=== PATIENT | female | born 1990 | race Caucasian/White ===

== ENCOUNTER 2021-02-25 08:42 | Emergency (ER) | payer MEDICAID ==
[~2021-02-25] VITALS: Ht 160 cm; Wt 65.0 kg
[2021-02-25 08:50] VITALS: BP 99/53
[2021-02-25 09:16] LABS: CLARITY,URINE SLIGHTLY CLOUDY (Clear); COLOR,URINE STRAW (Yellow); GLUCOSE, URINE NEGATIVE (Neg); KETONES,URINE NEGATIVE (Neg); LEUKOCYTE ESTERASE ,URINE NEGATIVE (Neg); NITRITES, URINE NEGATIVE (Neg); OCCULT BLOOD,URINE SMALL (Neg); PROTEIN,URINE NEGATIVE (Neg); UROBILINOGEN,URINE 0.2 E.U/dL (0.2-1.0)
[2021-02-25 09:17] LABS: URINE HCG NEGATIVE (NEG)
[2021-02-25 09:29] LABS: EOSINOPHILS # (AUTO) 0.1 X10'3 (0-0.9); LYMPHOCYTES # (AUTO) 1.8 X10'3 (1.1-4.8); MEAN CORPUSCULAR HEMOGLOBIN 32.8 PG (27.0-31.0)
[2021-02-25 09:30] LABS: UA COLLECTION TYPE CLN CATCH MIDSTREAM
[2021-02-25 09:31] LABS: SQUAMOUS EPITHELIAL CELL,UR MODERATE /LPF (FEW)
[2021-02-25 09:31] LABS: BASOPHILS % (AUTO) 0.3 % (0-1); EOSINOPHILS % (AUTO) 1.2 % (0-6); HEMATOCRIT 42.4 % (35.0-45.0); HEMOGLOBIN 14.4 g/dl (12.0-16.0); LYMPHOCYTES % (AUTO) 19.5 % (21-51); MEAN CORPUSCULAR HGB CONC 33.9 g/dL (33.0-36.5); MEAN CORPUSCULAR VOLUME 96.6 FL (78-98); MEAN PLATELET VOLUME 7.5 FL (7.4-10.4); MONOCYTES # (AUTO) 0.4 X10'3 (0-0.9); MONOCYTES % (AUTO) 4.9 % (2-12); NEUTROPHILS # (AUTO) 6.8 X10'3 (1.8-7.7); NEUTROPHILS % (AUTO) 74.1 % (42-75); PLATELET COUNT 281 X10'3 (140-440); RED BLOOD COUNT 4.38 X10'6 (4.20-5.60); RED CELL DISTRIBUTION WIDTH 12.8 % (11.5-14.5); WHITE BLOOD COUNT 9.1 X10'3 (4.5-11.0)
[2021-02-25 09:32] LABS: BACTERIA,URINE 1+ /HPF (Neg); RBC,URINE 0-2 /HPF (0-2); WBC,URINE NONE SEEN /HPF (0-4)
[2021-02-25 09:46] LABS: ALANINE AMINOTRANSFERASE 22 U/L (12-78); ALBUMIN 4.1 G/DL (3.4-5.0); ALBUMIN/GLOBULIN RATIO 1.2 (1.1-1.5); ALKALINE PHOSPHATASE 63 IU/L (46-116); AMYLASE 31 U/L (25-115); ANION GAP 7 (8-16); ASPARTATE AMINO TRANSFERASE 22 U/L (10-37); BILIRUBIN,TOTAL 0.5 MG/DL (0.1-1.0); BLOOD UREA NITROGEN 8 MG/DL (7-18); BUN/CREATININE RATIO 14.3 (6.6-38.0); CALCIUM 8.7 MG/DL (8.5-10.1); CHLORIDE 107 MMOL/L (99-107); CREATININE 0.56 MG/DL (0.40-0.90); GLUCOSE 92 MG/DL (70-104); LIPASE 78 U/L (73-393); POTASSIUM 3.9 MMOL/L (3.5-5.1); SODIUM 139 MMOL/L (135-145); TOTAL CARBON DIOXIDE 24.7 MMOL/L (24-32); TOTAL PROTEIN 7.4 G/DL (6.4-8.2); eGFR > 90 ML/MIN
== END 2021-02-25 11:28 | disposition home or self-care (01) ==
LOC: ER 08:43
DX: R10.13 Epigastric pain (principal); R10.11 Right upper quadrant pain
CPT/HCPCS: 36415; 76700; 80053; 81001; 81025; 82150; 83690; 85025; 99284

== ENCOUNTER 2021-07-23 18:40 | Emergency (ER) | payer MEDICAID ==
[~2021-07-23] VITALS: Ht 160 cm; Wt 49.0 kg
[2021-07-23 19:34] VITALS: BP 108/62
[2021-07-23] MEDS ORDERED: TETanus/Pertussis (Acell)/Diphther VAC/PF (Tdap-Adult) 0.5ml syringe IMVAC ONE (21:05)
== END 2021-07-23 21:38 | disposition home or self-care (01) ==
LOC: ER 18:40
DX: S51.812A Laceration without foreign body of left forearm, initial encounter (principal); Z20.3 Contact with and (suspected) exposure to rabies; X58.XXXA Exposure to other specified factors, initial encounter; Y93.89 Activity, other specified; Y92.89 Other specified places as the place of occurrence of the external cause; Y99.8 Other external cause status
CPT/HCPCS: 12001; 90471; 90715; 99283

== ENCOUNTER 2021-09-23 12:07 | Emergency (ER) | payer MEDICAID ==
[~2021-09-23] VITALS: Ht 160 cm; Wt 57.6 kg
[~2021-09-23 12:07] MED LIST: ALPR-624 PO; BAC10T PO; CEPH250C92 PO; DOXY-8 PO; IBUP-1984 PO; LORA1TAB PO; ONDA8TAB6 PO; POTA-207 PO
[2021-09-23 13:20] VITALS: BP 90/54
[2021-09-23 13:46] LABS: URINE HCG NEGATIVE (NEG)
[2021-09-23 13:56] LABS: CLARITY,URINE CLEAR (Clear); COLOR,URINE YELLOW (Yellow); PROTEIN,URINE Negative (Neg); UA COLLECTION TYPE CLN CATCH MIDSTREAM
[2021-09-23 13:57] LABS: GLUCOSE, URINE Negative (Neg); KETONES,URINE NEGATIVE (Neg); LEUKOCYTE ESTERASE ,URINE NEGATIVE (Neg); NITRITES, URINE NEGATIVE (Neg); OCCULT BLOOD,URINE SMALL (Neg); UROBILINOGEN,URINE 0.2 E.U/dL (0.2-1.0)
[2021-09-23] MEDS ORDERED: ACET-1025 PO (14:10)
[2021-09-23] MEDS ORDERED: ONDA4TAB6 PO (14:10)
[2021-09-23 14:24] LABS: WBC,URINE 0-4 /HPF (0-4)
[2021-09-23 14:25] LABS: BACTERIA,URINE NONE SEEN /HPF (Neg); RBC,URINE NONE SEEN /HPF (0-2); SQUAMOUS EPITHELIAL CELL,UR FEW /LPF (FEW)
== END 2021-09-23 14:10 | disposition home or self-care (01) ==
LOC: ER 12:08
DX: R10.31 Right lower quadrant pain (principal); R10.32 Left lower quadrant pain; Z79.2 Long term (current) use of antibiotics; Z79.899 Other long term (current) drug therapy
CPT/HCPCS: 76830; 76856; 81001; 81025; 93976; 99284

== ENCOUNTER 2022-09-01 08:49 | Emergency (ER) | payer MEDICAID ==
[~2022-09-01] VITALS: Ht 162.6 cm; Wt 58.6 kg
[~2022-09-01 08:49] MED LIST changes: +ONDA4TAB6 PO
[2022-09-01 09:23] VITALS: BP 99/65
[2022-09-01 09:47] LABS: BASOPHILS % (AUTO) 0.9 % (0-1); EOSINOPHILS # (AUTO) 0.1 X10'3 (0-0.9); EOSINOPHILS % (AUTO) 2.7 % (0-6); HEMATOCRIT 38.9 % (35.0-45.0); HEMOGLOBIN 13.7 g/dl (12.0-16.0); LYMPHOCYTES # (AUTO) 1.7 X10'3 (1.1-4.8); LYMPHOCYTES % (AUTO) 34.4 % (21-51); MEAN CORPUSCULAR HEMOGLOBIN 33.5 PG (27.0-31.0); MEAN CORPUSCULAR HGB CONC 35.1 g/dL (33.0-36.5); MEAN CORPUSCULAR VOLUME 95.4 FL (78-98); MONOCYTES # (AUTO) 0.3 X10'3 (0-0.9); MONOCYTES % (AUTO) 6.5 % (2-12); NEUTROPHILS # (AUTO) 2.8 X10'3 (1.8-7.7); NEUTROPHILS % (AUTO) 55.5 % (42-75); PLATELET COUNT 252 X10'3 (140-440); RED BLOOD COUNT 4.08 X10'6 (4.20-5.60); RED CELL DISTRIBUTION WIDTH 12.9 % (11.5-14.5)
[2022-09-01 10:02] LABS: ALANINE AMINOTRANSFERASE 18 U/L (12-78); ALBUMIN 3.9 G/DL (3.4-5.0); ALBUMIN/GLOBULIN RATIO 1.3 (1.1-1.5); ALKALINE PHOSPHATASE 49 IU/L (46-116); ANION GAP 6 (8-16); ASPARTATE AMINO TRANSFERASE 13 U/L (10-37); BILIRUBIN,TOTAL 0.5 MG/DL (0.1-1.0); BLOOD UREA NITROGEN 13 MG/DL (7-18); BUN/CREATININE RATIO 20.3 (6.6-38.0); CALCIUM 9.2 MG/DL (8.5-10.1); CHLORIDE 106 MMOL/L (99-107); CREATININE 0.64 MG/DL (0.40-0.90); GLUCOSE 91 MG/DL (70-104); POTASSIUM 4.2 MMOL/L (3.5-5.1); SODIUM 141 MMOL/L (135-145); TOTAL CARBON DIOXIDE 29.2 MMOL/L (24-32); eGFR > 90 ML/MIN
== END 2022-09-01 11:11 | disposition home or self-care (01) ==
LOC: ER 08:50
DX: R07.9 Chest pain, unspecified (principal); R06.02 Shortness of breath; G47.00 Insomnia, unspecified; Z79.899 Other long term (current) drug therapy
CPT/HCPCS: 36415; 71045; 80053; 83880; 84484; 85025; 93005; 99285

== ENCOUNTER 2022-12-17 08:38 | Emergency (ER) | payer MEDICAID ==
[~2022-12-17] VITALS: Ht 162.6 cm; Wt 58.2 kg
[2022-12-17 08:42] VITALS: BP 101/54
[2022-12-17] MEDS ORDERED: NAPR-56 PO (08:58)
[2022-12-17] MEDS ORDERED: HYDR-3965 PO (08:58)
[2022-12-17] MEDS ORDERED: PENI250T2 PO (08:58)
--- NOTE | 2022-12-17 09:16 | NUR ---
pt requesting for pain meds before d/c ,recevied verbal order for naproxen 500 mg po once for pain.
[2022-12-17] MEDS ORDERED: naproxen 500mg tablet PO ONE (09:20)
== END 2022-12-17 09:28 | disposition home or self-care (01) ==
LOC: ER 08:38
DX: K04.7 Periapical abscess without sinus (principal); Z79.899 Other long term (current) drug therapy
CPT/HCPCS: 99283

== ENCOUNTER 2023-01-17 15:15 | Emergency (ER) | payer MEDICAID ==
[~2023-01-17] VITALS: Ht 162.6 cm; Wt 59.1 kg
[~2023-01-17 15:15] MED LIST changes: +HYDR-3965 PO; +NAPR-56 PO
[2023-01-17 15:24] VITALS: BP 110/64
[2023-01-17 15:48] LABS: BASOPHILS % (AUTO) 0.2 % (0-1); EOSINOPHILS # (AUTO) 0.1 X10'3 (0-0.9); EOSINOPHILS % (AUTO) 0.6 % (0-6); HEMATOCRIT 41.5 % (35.0-45.0); HEMOGLOBIN 14.3 g/dl (12.0-16.0); LYMPHOCYTES % (AUTO) 7.8 % (21-51); MEAN CORPUSCULAR HEMOGLOBIN 33.1 PG (27.0-31.0); MEAN CORPUSCULAR HGB CONC 34.4 g/dL (33.0-36.5); MEAN CORPUSCULAR VOLUME 96.3 FL (78-98); MEAN PLATELET VOLUME 7.2 FL (7.4-10.4); MONOCYTES # (AUTO) 1.1 X10'3 (0-0.9); MONOCYTES % (AUTO) 8.6 % (2-12); NEUTROPHILS # (AUTO) 10.5 X10'3 (1.8-7.7); NEUTROPHILS % (AUTO) 82.8 % (42-75); PLATELET COUNT 221 X10'3 (140-440); RED BLOOD COUNT 4.31 X10'6 (4.20-5.60); RED CELL DISTRIBUTION WIDTH 12.9 % (11.5-14.5); WHITE BLOOD COUNT 12.7 X10'3 (4.5-11.0)
[2023-01-17 16:05] LABS: ALANINE AMINOTRANSFERASE 19 U/L (12-78); ALBUMIN 3.9 G/DL (3.4-5.0); ALKALINE PHOSPHATASE 55 IU/L (46-116); ANION GAP 7 (8-16); ASPARTATE AMINO TRANSFERASE 14 U/L (10-37); BILIRUBIN,TOTAL 0.4 MG/DL (0.1-1.0); BLOOD UREA NITROGEN 11 MG/DL (7-18); CALCIUM 9.2 MG/DL (8.5-10.1); CHLORIDE 103 MMOL/L (99-107); CREATININE 0.61 MG/DL (0.40-0.90); GLUCOSE 128 MG/DL (70-104); POTASSIUM 3.8 MMOL/L (3.5-5.1); SODIUM 136 MMOL/L (135-145); TOTAL CARBON DIOXIDE 25.9 MMOL/L (24-32); TOTAL PROTEIN 7.8 G/DL (6.4-8.2); eGFR > 90 ML/MIN
[2023-01-17 16:13] LABS: MAGNESIUM 2.1 MG/DL (1.5-2.4)
[2023-01-17] MEDS ORDERED: acetaminophen 325mg tablet PO ONE (16:20)
[2023-01-17] MEDS ORDERED: dexamethasone sod phosphate 10mg/ml inj PO STA (17:36)
[2023-01-17] MEDS ORDERED: AMOX500C2 PO (17:36)
[2023-01-17] MEDS ORDERED: amoxicillin 250mg capsule PO ONE (17:50)
== END 2023-01-17 18:18 | disposition home or self-care (01) ==
LOC: ER 15:17
DX: J18.9 Pneumonia, unspecified organism (principal); F17.200 Nicotine dependence, unspecified, uncomplicated; Z79.899 Other long term (current) drug therapy; Z79.1 Long term (current) use of non-steroidal anti-inflammatories (NSAID)
CPT/HCPCS: 36415; 71046; 80053; 83735; 83880; 84484; 85025; 99285; J1100; 93005

== ENCOUNTER 2023-01-21 08:37 | Emergency (ER) | payer MEDICAID ==
[~2023-01-21] VITALS: Ht 160 cm; Wt 59.1 kg
[~2023-01-21 08:37] MED LIST changes: +AMOX500C2 PO; -HYDR-3965 PO; -NAPR-56 PO
[2023-01-21] MEDS ORDERED: albuterol 2.5 MG/3 ML nebule NEB ONE (09:55)
[2023-01-21] MEDS ORDERED: ONDA4TAB12 PO (10:00)
[2023-01-21] MEDS ORDERED: ondansetron 4mg rapidly disintigrating tab PO ONE (10:00)
[2023-01-21] MEDS ORDERED: azithromycin 250mg tablet PO ONE (10:00)
[2023-01-21] MEDS ORDERED: dexamethasone 4mg tablet PO ONE (10:00)
[2023-01-21] MEDS ORDERED: AZIT-83 PO (10:00)
[2023-01-21] MEDS ORDERED: DEC4T PO (10:02)
[2023-01-21] MEDS ORDERED: ALBU6.7H14 INH (10:02)
[2023-01-21 10:26] VITALS: BP 90/60
== END 2023-01-21 11:18 | disposition home or self-care (01) ==
LOC: ER 08:38
DX: J12.9 Viral pneumonia, unspecified (principal); J45.909 Unspecified asthma, uncomplicated; Z79.899 Other long term (current) drug therapy
CPT/HCPCS: 71046; 94640; 94760; 99284

== ENCOUNTER 2023-01-23 09:51 | Emergency (ER) | payer MEDICAID ==
[~2023-01-23] VITALS: Ht 160 cm; Wt 59.1 kg
[~2023-01-23 09:51] MED LIST changes: +ALBU6.7H14 INH; +AZIT-83 PO; +DEC4T PO; +ONDA4TAB12 PO
[2023-01-23 10:27] VITALS: BP 106/58
== END 2023-01-23 11:33 | disposition left against medical advice (07) ==
LOC: ER 09:52
DX: Z48.00 Encounter for change or removal of nonsurgical wound dressing (principal); Z53.21 Procedure and treatment not carried out due to patient leaving prior to being seen by health care provider
CPT/HCPCS: 99281

== ENCOUNTER 2023-08-12 19:42 | Emergency (ER) | payer MEDICAID ==
[~2023-08-12] VITALS: Ht 157.5 cm; Wt 58.2 kg
[~2023-08-12 19:42] MED LIST changes: -AMOX500C2 PO; -AZIT-83 PO; -DEC4T PO
[2023-08-12 20:07] LABS: BASOPHILS % (AUTO) 0.8 % (0-1); EOSINOPHILS # (AUTO) 0.2 X10'3 (0-0.9); HEMATOCRIT 41.6 % (35.0-45.0); HEMOGLOBIN 14.4 g/dl (12.0-16.0); LYMPHOCYTES # (AUTO) 1.4 X10'3 (1.1-4.8); LYMPHOCYTES % (AUTO) 32.2 % (21-51); MEAN CORPUSCULAR HEMOGLOBIN 34.1 PG (27.0-31.0); MEAN CORPUSCULAR HGB CONC 34.5 g/dL (33.0-36.5); MEAN CORPUSCULAR VOLUME 98.8 FL (78-98); MONOCYTES # (AUTO) 0.6 X10'3 (0-0.9); MONOCYTES % (AUTO) 14.3 % (2-12); NEUTROPHILS # (AUTO) 2.1 X10'3 (1.8-7.7); NEUTROPHILS % (AUTO) 48.7 % (42-75); PLATELET COUNT 217 X10'3 (140-440); RED BLOOD COUNT 4.21 X10'6 (4.20-5.60); RED CELL DISTRIBUTION WIDTH 12.9 % (11.5-14.5); WHITE BLOOD COUNT 4.3 X10'3 (4.5-11.0)
[2023-08-12 20:20] VITALS: TEMP 98.5
[2023-08-12 20:20] LABS: ALANINE AMINOTRANSFERASE 33 U/L (12-78); ALBUMIN 3.8 G/DL (3.4-5.0); ALBUMIN/GLOBULIN RATIO 1.2 (1.1-1.5); ALKALINE PHOSPHATASE 47 IU/L (46-116); ANION GAP 8 (8-16); ASPARTATE AMINO TRANSFERASE 34 U/L (10-37); BILIRUBIN,TOTAL 0.1 MG/DL (0.1-1.0); BLOOD UREA NITROGEN 12 MG/DL (7-18); CALCIUM 8.9 MG/DL (8.5-10.1); CHLORIDE 104 MMOL/L (99-107); CREATININE 0.63 MG/DL (0.40-0.90); GLUCOSE 116 MG/DL (70-104); POTASSIUM 3.6 MMOL/L (3.5-5.1); SODIUM 136 MMOL/L (135-145); TOTAL CARBON DIOXIDE 24.2 MMOL/L (24-32); TOTAL PROTEIN 7.1 G/DL (6.4-8.2); eGFR > 90 ML/MIN
[2023-08-12 20:27] LABS: PRO BRAIN NATRIURETIC PEPTIDE 90 PG/ML (0-125)
[2023-08-12] MEDS ORDERED: DEC4T PO (22:40)
[2023-08-12] MEDS ORDERED: AZIT-164 PO (22:40)
[2023-08-12 22:55] VITALS: BP 125/72; PULSE 86; RESP 18; O2SAT 98
[2023-08-13] MEDS ORDERED: NIRM1TAB PO (19:55)
[2023-08-16] MEDS ORDERED: CEFD300C3 PO (19:24)
== END 2023-08-12 22:59 | disposition home or self-care (01) ==
LOC: ER 19:42
DX: J12.9 Viral pneumonia, unspecified (principal); Z20.822 Contact with and (suspected) exposure to COVID-19
CPT/HCPCS: 36415; 71045; 80053; 83880; 84484; 85025; 87811; 93005; 99285

== ENCOUNTER 2023-11-12 12:37 | Emergency (ER) | payer MEDICAID ==
[~2023-11-12] VITALS: Ht 160 cm; Wt 62.5 kg
[~2023-11-12 12:37] MED LIST changes: +NIRM1TAB PO
[2023-11-12 12:50] VITALS: BP 116/64; PULSE 82; O2SAT 96
[2023-11-12 13:55] VITALS: RESP 16
[2023-11-12] MEDS ORDERED: TETanus/Pertussis (Acell)/Diphther VAC/PF (Tdap-Adult) 0.5ml syringe IMVAC ONE (14:15)
[2023-11-12] MEDS ORDERED: bacitracin 15gm ointment TP ONE (14:15)
[2023-11-12] MEDS ORDERED: ketorolac trometh. 30mg/ml inj. IM ONE (14:15)
[2023-11-12 14:48] VITALS: TEMP 99.1
== END 2023-11-12 14:51 | disposition home or self-care (01) ==
LOC: ER 12:38
DX: S00.11XA Contusion of right eyelid and periocular area, initial encounter (principal); S50.02XA Contusion of left elbow, initial encounter; X58.XXXA Exposure to other specified factors, initial encounter; Y93.89 Activity, other specified; Y92.89 Other specified places as the place of occurrence of the external cause; Y99.8 Other external cause status
CPT/HCPCS: 70150; 73080; 99284

== ENCOUNTER 2024-02-08 09:39 | Emergency (ER) | payer MEDICAID ==
[~2024-02-08] VITALS: Ht 167.6 cm; Wt 59.1 kg
[2024-02-08] MEDS: predniSONE 20 mg tablet PO ONE (10:06)
[2024-02-08] MEDS ORDERED: ALBU6.7H14 INH (10:15)
[2024-02-08] MEDS ORDERED: PRED20TA PO (10:15)
[2024-02-08] MEDS ORDERED: BUDE180A INH (10:15)
[2024-02-08] MEDS ORDERED: AMOX-580 PO (10:15)
[2024-02-08] MEDS ORDERED: FLUC200T PO (10:22)
[2024-02-08 10:37] VITALS: PULSE 86; RESP 18; O2SAT 96
[2024-02-08] MEDS: ipratropium/albuterol 3ml nebule NEB ONE (10:37)
[2024-02-08 10:46] VITALS: PULSE 87; RESP 18; O2SAT 98
[2024-02-08 10:57] VITALS: BP 120/65; PULSE 86; RESP 17; TEMP 97.9; O2SAT 97
== END 2024-02-08 11:00 | disposition home or self-care (01) ==
LOC: ER 09:40
DX: J20.9 Acute bronchitis, unspecified (principal); J45.901 Unspecified asthma with (acute) exacerbation; R09.81 Nasal congestion; Z79.1 Long term (current) use of non-steroidal anti-inflammatories (NSAID); Z79.2 Long term (current) use of antibiotics
CPT/HCPCS: 71045; 94640; 99283; J7512; 94760

== ENCOUNTER 2024-03-09 11:31 | Emergency (ER) | payer MEDICAID ==
[~2024-03-09] VITALS: Ht 162.6 cm; Wt 62.1 kg
[~2024-03-09 11:31] MED LIST changes: +BUDE180A INH; +FLUC200T PO
[2024-03-09 11:43] VITALS: BP 99/36; PULSE 85; RESP 18; TEMP 97.8; O2SAT 96
[2024-03-09] MEDS ORDERED: NAPR-56 PO (13:18)
== END 2024-03-09 13:35 | disposition home or self-care (01) ==
LOC: ER 11:31
DX: S93.402A Sprain of unspecified ligament of left ankle, initial encounter (principal); J45.909 Unspecified asthma, uncomplicated; Z79.899 Other long term (current) drug therapy; Z79.1 Long term (current) use of non-steroidal anti-inflammatories (NSAID); Z79.2 Long term (current) use of antibiotics; X50.1XXA Overexertion from prolonged static or awkward postures, initial encounter; Y93.89 Activity, other specified; Y92.89 Other specified places as the place of occurrence of the external cause; Y99.8 Other external cause status
CPT/HCPCS: 73610; 99283; A6449

== ENCOUNTER 2024-05-23 12:58 | Emergency (ER) | payer OTHER, MEDICAID ==
[~2024-05-23] VITALS: Ht 162.6 cm; Wt 59.4 kg
[~2024-05-23 12:58] MED LIST changes: +ONDA-243 PO; -ONDA4TAB12 PO
[2024-05-23] MEDS ORDERED: CLIN-97 PO (14:45)
[2024-05-23] MEDS ORDERED: HYDR-3965 PO (14:45)
[2024-05-23 15:00] VITALS: BP 122/68; PULSE 96; RESP 17; TEMP 99; O2SAT 97
== END 2024-05-23 15:03 | disposition home or self-care (01) ==
LOC: ER 12:58
DX: K04.7 Periapical abscess without sinus (principal); J45.909 Unspecified asthma, uncomplicated; Z79.899 Other long term (current) drug therapy; Z79.1 Long term (current) use of non-steroidal anti-inflammatories (NSAID); Z79.2 Long term (current) use of antibiotics
CPT/HCPCS: 99283

== ENCOUNTER 2024-08-21 16:00 | Emergency (ER) | payer OTHER, MEDICAID ==
[~2024-08-21] VITALS: Ht 160 cm; Wt 58.1 kg
[~2024-08-21 16:00] MED LIST changes: +CLIN-97 PO
[2024-08-21 16:10] VITALS: BP 105/71; PULSE 89; O2SAT 99
[2024-08-21 17:20] LABS: URINE HCG NEGATIVE (NEG)
[2024-08-21] MEDS: ketorolac trometh 15mg/ml vial 15 MG/ML ML IM ONE (17:29)
[2024-08-21] MEDS ORDERED: BACL10TA2 PO (18:20)
[2024-08-21] MEDS ORDERED: NAPR-996 PO (18:20)
[2024-08-21] MEDS ORDERED: LIDO15CR11 TOP (18:20)
[2024-08-21 18:25] VITALS: RESP 14; TEMP 98.5
== END 2024-08-21 18:38 | disposition home or self-care (01) ==
LOC: ER 16:01
DX: T14.8XXA Other injury of unspecified body region, initial encounter (principal); J45.909 Unspecified asthma, uncomplicated; M54.2 Cervicalgia; M54.6 Pain in thoracic spine; M25.512 Pain in left shoulder; Z79.1 Long term (current) use of non-steroidal anti-inflammatories (NSAID); Z79.2 Long term (current) use of antibiotics; Z79.899 Other long term (current) drug therapy; Y08.89XA Assault by other specified means, initial encounter; Y93.89 Activity, other specified; Y92.89 Other specified places as the place of occurrence of the external cause; Y99.8 Other external cause status
CPT/HCPCS: 71045; 72125; 73030; 81025; 96372; 99285; J1885